=== PATIENT | female | born 1980 | race Caucasian/White ===

== ENCOUNTER 2022-10-21 09:53 | Day surgery (SDC) | payer OTHER ==
[~2022-10-21] VITALS: Ht 165.1 cm; Wt 62.7 kg
== END 2022-10-21 13:37 | disposition home or self-care (01) ==
LOC: ORSCSDS 09:53
PROVIDERS: Specialist
PROC: 0DBK8ZX Excision of Ascending Colon, Via Natural or Artificial Opening Endoscopic, Diagnostic (ICD-10-PCS; principal; 2022-10-21 11:45)
DX: K62.5 Hemorrhage of anus and rectum (principal); R10.32 Left lower quadrant pain; D12.2 Benign neoplasm of ascending colon; K64.8 Other hemorrhoids; Z83.71 Family history of colonic polyps; Z85.89 Personal history of malignant neoplasm of other organs and systems
CPT/HCPCS: 88305; J2704; J7120